=== PATIENT | female | born 1975 | race African-American/Black ===

== ENCOUNTER 2016-12-08 13:32 | Day surgery (SDC) | payer OTHER ==
[2016-12-08 13:57] VITALS: BP 145/90; PULSE 67; RESP 20; TEMP 98.1; O2SAT 100
--- NOTE | 2016-12-08 14:41 | RADRPT ---
EXAM DATE/TIME: 12/08/2016 00:00 [facility] COMPARISON : No previous studies available for comparison. INDICATIONS : CONSULT FOR UFE OBJECTIVE: Temperature: Heart Rate: 67 Blood Pressure: 145/90 Respiratory: 18 Oximetry: 100 PNEUMONIA VACCINE: NO HISTORY OF PRESENT ILLNESS: The patient has a several year history of progressively increasing symptoms associated with known francisco j rine fibroids. The patient reports excessive menstrual bleeding and intermenstrual bleeding associate d with significant dysmenorrhea. The patient has generalized pelvic discomfort in pelvic fullness as well as urinary frequency. She has had routine gynecologic care. In office ultrasound performed by Dr Ying Reid revealed a fibroid uterus without suspicious findings in the endometrial cavity or adnexa. Maria Guadalupe oce was treated for pelvic infection earlier this year and has recovered. PAST MEDICAL HISTORY : 1. UTERINE FIBROIDS PERIRECTAL ABSCESS PAST SURGICAL HISTORY : 1. None. SOCIAL HISTORY : Social alcohol use. Tobacco;none. ALLERGIES: 1. BANANAS 2. MELONS MEDICATIONS: 1. ALEVE 200 mg prn ASSESSMENT: The patient appears to be a good candidate for uterine artery embolization. The procedural details, r isks, benefits and alternatives to treatment were discussed in detail with the patient and her shaka e. PLAN: The patient will call to schedule for UFE at a time in the near future that is convenient for her and her partner. Many thanks to Dr. Reid for inviting us participate in the care of this pleasant young woman. Tigre Paulson MD on December 08, 2016 at 14:33 Board Certified Radiologist. This report was verified electronically.
== END 2016-12-08 14:20 | disposition home or self-care (01) ==
LOC: HROP 13:32 → HRIP 13:33 → HROP 14:20
PROVIDERS: ATTEND Obstetrics & Gynecology Gynecology
DX: D25.9 Leiomyoma of uterus, unspecified (principal)

== ENCOUNTER 2016-12-14 06:17 | Observation (INO) | payer OTHER ==
[~2016-12-14] VITALS: Ht 165.1 cm; Wt 63.0 kg
[2016-12-14] VITALS (13 sets, daily range): BP systolic 122–151; BP diastolic 60–87; PULSE 60–67; RESP 12–20; TEMP 96.3–98.7; O2SAT 95–99
[2016-12-14] MEDS ORDERED: IODIXANOL 320 MG/ML 50 ML VIAL (for RAD SPEC) I-ARTERIAL ONE (06:18)
[2016-12-14] MEDS ORDERED: GELATIN 12 MM/7 MM FOAM I-ARTERIAL ONE (06:18)
[2016-12-14] MEDS ORDERED: MIDAZOLAM HCL 5 MG/5 ML VIAL ONE (06:47)
[2016-12-14] MEDS ORDERED: DIAZEPAM 10 MG TAB PO SCH (07:00)
[2016-12-14] MEDS ORDERED: SODIUM CHLOR 0.9% 1000 ML INJ 1,000 ML IV SCH (07:00)
[2016-12-14] MEDS ORDERED: KETOROLAC TROMETHAMINE 30 MG/ML (IVP) VIAL IV PUSH SCH (07:00)
[2016-12-14] MEDS ORDERED: ceFAZolin 2 GM PREMIX 50 ML IV SCH (07:00)
[2016-12-14] MEDS ORDERED: ONDANSETRON HCL 4 MG/2 ML VIAL IV PUSH SCH (07:00)
[2016-12-14 07:13] LABS: AUTOMATED NEUTROPHIL # 4.7 TH/MM3 (1.8-7.7); BASOPHIL % 0.7 % (0.0-2.0); EOSINOPHIL % 0.3 % (0.0-4.0); HEMATOCRIT 33.3 % (35.0-46.0); HEMO FLAGS DIFF FINAL; LYMPH % 18.5 % (9.0-44.0); LYMPHOCYTE # 1.3 TH/MM3 (1.0-4.8); MEAN CELL VOLUME 84.8 FL (80.0-100.0); MEAN CORPUSCULAR HEMOGLOBIN 27.5 PG (27.0-34.0); MEAN CORPUSCULAR HGB CONC 32.5 % (32.0-36.0); MONO % 12.4 % (0.0-8.0); NEUT % 68.1 % (16.0-70.0); PLATELET COUNT 227 TH/MM3 (150-450); RED BLOOD COUNT 3.93 MIL/MM3 (4.00-5.30); RED CELL DISTRIBUTION WIDTH 17.6 % (11.6-17.2)
[2016-12-14 07:29] LABS: BICARBONATE 25.6 MEQ/L (21.0-32.0); POTASSIUM 3.8 MEQ/L (3.5-5.1)
[2016-12-14 07:31] LABS: INTERNATIONAL NORMALIZED RATIO 0.9 RATIO; PROTHROMBIN TIME - PATIENT 10.3 SEC (9.8-11.6)
--- NOTE | 2016-12-14 08:52 | PD.RAD ---
Post Procedure Progress Note Pre Procedure Diagnosis: (1) Uterine fibroid (2) Menorrhagia Post Procedure Diagnosis: (1) Menorrhagia (2) Uterine fibroid Procedure Date: Dec 14, 2016 Supervising Radiologist: Tigre Paulson Proceduralist/Assist: RT Elizabeth(R) Anesthesia: Local, Conscious Sedation Plan of Activity Patient to Unit: ROPU Patient Condition: Good See PACS Report for procedural detail/treatment Vascular-Arterial Procedure Procedure 1 Procedure Site: Abdominal Procedure(s): Angiogram, Embolization Access Access Site(s): Right Femoral Artery Closure Site(s): Right vascular closure device Treament Area: bilateral uterine artery embolization Tigre Paulson MD Dec 14, 2016 08:52
[2016-12-14] MEDS ORDERED: ONDANSETRON HCL 4 MG/2 ML VIAL IV PUSH PRN (09:00)
[2016-12-14] MEDS ORDERED: HYDROmorphone HCL PCA 6 MG/30 ML IV SCH (09:00)
[2016-12-14] MEDS ORDERED: diphenhydrAMINE HCL 50 MG/ML VIAL IV PUSH PRN (09:00)
[2016-12-14] MEDS ORDERED: diphenhydrAMINE HCL 25 MG CAP PO PRN (09:00)
[2016-12-14] MEDS ORDERED: NALOXONE HCL 0.4 MG/ML AMP IV PUSH PRN ×2 (09:00→10:00)
[2016-12-14] MEDS ORDERED: ACETAMINOPHEN 325 MG TAB PO PRN ×2 (09:00→10:00)
[2016-12-14] MEDS ORDERED: TEMAZEPAM 15 MG CAP PO PRN (10:00)
[2016-12-14] MEDS ORDERED: SODIUM CHLORIDE 0.9% FLUSH 10 ML FLUSH IV FLUSH PRN (10:00)
[2016-12-14] MEDS ORDERED: MAGNESIUM HYDROXIDE SUSP 30 ML CUP PO PRN ×2 (10:00→16:00)
[2016-12-14] MEDS ORDERED: ONDANSETRON HCL 4 MG/2 ML VIAL IVP PRN (10:00)
[2016-12-14] MEDS ORDERED: ACETAMINOPHEN/HYDROcodone 325 MG/5 MG TAB PO PRN ×2 (10:00→16:00)
[2016-12-14] MEDS: KETOROLAC TROMETHAMINE 10 MG TAB PO SCH ×3 (12:00→23:15)
[2016-12-14] MEDS: LEVOFLOXACIN 500 MG TAB PO SCH (12:00)
[2016-12-14] MEDS: KETOROLAC TROMETHAMINE 30 MG/ML (IVP) VIAL IVP SCH ×3 (12:52→23:15)
[2016-12-14] MEDS: LEVOFLOXACIN 500 MG PREMIX INJ 100 ML IV SCH (12:52)
[2016-12-14] MEDS ORDERED: PCA - TOTAL MG DILAUDID DELIVERED PER SHIFT OTHER SCH (14:00)
--- NOTE | 2016-12-14 14:36 | EKG ---
Date Performed: 12/14/2016 Time Performed: 10:19:01 PTAGE: 41 years EKG: Sinus rhythm POSSIBLE RIGHT VENTRICULAR CONDUCTION DELAY BORDERLINE ECG NO PREVIOUS TRACING DOCTOR: Lopez Rivas Interpretating Date/Time 12/14/2016 14:35:42
--- NOTE | 2016-12-14 14:46 | HHI.HP ---
HPI Service [facility] Hospitalists Primary Care Physician Dr. Hewitt Admission Diagnosis pain Chief Complaint: pain S/P Uterine fibroid emboloization Travel History International Travel<30 Days: No Contact w/Intl Traveler <30 Da: No Traveled to Known Affected Are: No History of Present Illness This is a pleasant 41 year old female patient with a past medical history which includes: Perirectal abscess, acute constipation treated in ER Monday uterine fibroid. Patient is S/P Uterine artery embolization 12/14/16 with interventional radiology. We have been consulted for observation admission. Patient currently resting in bed with fiance at bedside. Patient reports she has constant 8/10 right sided abdominal pain which is throbbing in nature with radiation to the back. Patient reports this is the same pain that she has been having since Monday when she was seen at [facility] for constipation. Patient was discharged home and took magnesium citrate Monday AM , since that time patient has small amount of liquid stool on Monday. Patient does not recall passing flatus and also has nausea. Review of Systems Constitutional: DENIES: Fatigue, Fever, Chills Respiratory: DENIES: Cough, Sputum production, Shortness of breath Cardiovascular: DENIES: Chest pain, Palpitations, Dyspnea on Exertion Gastrointestinal: COMPLAINS OF: Abdominal pain, Constipation, Nausea, Vomiting Genitourinary: COMPLAINS OF: Abnormal vaginal bleeding Neurologic: DENIES: Abnormal gait, Headache, Localized weakness, Speech Problems Psychiatric: DENIES: Anxiety, Confusion, Depression Past Family Social History Past Medical History Perirectal abscess, acute constipation treated in ER Monday12/10/16 uterine fibroid Past Surgical History S/P Uterine artery embolization 12/14/16 with interventional radiology Perirectal s/p I&D 2001 Reported Medications none Allergies: Coded Allergies: No Known Allergies (Unverified , 12/14/16) Active Ordered Medications Current Medications Medications (Trade) Dose Ordered Sig/Liya Route Start Time Stop Time Status Last Admin Sodium Chloride 1,000 ml @ 100 mls/hr Q10H IV 12/14/16 07:00 (Valium) 10 mg WATER QUALITY TESTER PO 12/14/16 07:00 12/17/16 06:59 (Toradol Inj) 30 mg WATER QUALITY TESTER IV PUSH 12/14/16 07:00 12/17/16 06:59 Cefazolin Sodium/ Dextrose 50 ml @ 100 mls/hr WATER QUALITY TESTER IV 12/14/16 07:00 12/17/16 06:59 (Zofran Inj) 4 mg WATER QUALITY TESTER IV PUSH 12/14/16 07:00 12/17/16 06:59 (Toradol Inj) 30 mg Q6HR IVP 12/14/16 12:00 12/19/16 11:59 12/14/16 12:52 (Toradol) 10 mg Q6HR PO 12/14/16 12:00 12/19/16 11:59 (Levaquin) 500 mg Q24H PO 12/14/16 12:00 Levofloxacin/ Dextrose 100 ml @ 100 mls/hr Q24H IV 12/14/16 12:00 12/14/16 12:52 (Zofran Inj) 4 mg Q6H PRN IV PUSH 12/14/16 09:00 (Narcan Inj) 0.4 mg UNSCH PRN IV PUSH 12/14/16 09:00 (Benadryl Inj) 25 mg Q6H PRN IV PUSH 12/14/16 09:00 (Benadryl) 25 mg Q6H PRN PO 12/14/16 09:00 (Dilaudid [employer] Inj) 6 mg UNSCH IV 12/14/16 09:00 12/14/16 09:46 [employer] Dosage Infused (Pha) 1 Q8HR OTHER 12/14/16 14:00 12/14/16 14:00 (NS Flush) 2 ml UNSCH PRN IV FLUSH 12/14/16 10:00 (NS Flush) 2 ml BID IV FLUSH 12/14/16 21:00 (Tylenol) 650 mg Q4H PRN PO 12/14/16 10:00 (Zofran Inj) 4 mg Q6H PRN IVP 12/14/16 10:00 (Restoril) 15 mg HS PRN PO 12/14/16 10:00 (Milk Of Magnesia Liq) 30 ml Q12H PRN PO 12/14/16 10:00 (Creede 5-325 Mg) 1 tab Q4H PRN PO 12/14/16 10:00 Family History Father at 53 of cerebral hemorrhage Maternal grandmother alive 100 year old hx of colon Ca Social History Lives with maternal grandmother is her caregiver occasional ETOH use denies tobacco use denies illicit drug use Physical Exam Vital Signs Vital Signs Date Time Temp Pulse Resp B/P (MAP) Pulse Ox O2 Delivery O2 Flow Rate FiO2 12/14/16 14:00 16 12/14/16 11:30 60 12 125/70 (88) 96 12/14/16 11:00 60 12 123/65 (84) 96 12/14/16 10:30 66 12 126/71 (89) 96 12/14/16 10:00 65 12 123/63 (83) 96 12/14/16 09:46 18 12/14/16 09:45 63 12 122/72 (89) 96 12/14/16 09:30 60 12 123/60 (81) 96 12/14/16 09:15 66 16 143/78 (99) 96 12/14/16 09:00 67 16 151/85 (107) 96 12/14/16 08:50 97.6 67 16 132/78 (96) 96 12/14/16 06:51 99 Room Air 12/14/16 06:48 98.7 65 20 151/87 (108) 99 Physical Exam GENERAL: This is a well-nourished, well-developed patient SKIN: No rashes, ecchymoses or lesions. Cool and dry. HEAD: Atraumatic. Normocephalic. No temporal or scalp tenderness. EYES: Extraocular motions intact. No scleral icterus. No injection or drainage. CARDIOVASCULAR: Regular rate and rhythm without murmurs, gallops, or rubs. RESPIRATORY: Clear to auscultation. Breath sounds equal bilaterally. No wheezes , rales, or rhonchi. GASTROINTESTINAL: Abdomen soft, mildly distended. hypoactive bowel sounds MUSCULOSKELETAL: Extremities without clubbing, cyanosis, or edema. No joint tenderness, effusion, or edema noted. No calf tenderness. Negative Homans sign bilaterally. NEUROLOGICAL: Awake and alert. No focal deficits noted. Motor and sensory grossly within normal limits. Five out of 5 muscle strength in all muscle groups. Normal speech. Laboratory Laboratory Tests Test 12/14/16 06:00 White Blood Count 7.0 Red Blood Count 3.93 Hemoglobin 10.8 Hematocrit 33.3 Mean Corpuscular Volume 84.8 Mean Corpuscular Hemoglobin 27.5 Mean Corpuscular Hemoglobin Concent 32.5 Red Cell Distribution Width 17.6 Platelet Count 227 Mean Platelet Volume 9.8 Neutrophils (%) (Auto) 68.1 Lymphocytes (%) (Auto) 18.5 Monocytes (%) (Auto) 12.4 Eosinophils (%) (Auto) 0.3 Basophils (%) (Auto) 0.7 Neutrophils # (Auto) 4.7 Lymphocytes # (Auto) 1.3 Monocytes # (Auto) 0.9 Eosinophils # (Auto) 0.0 Basophils # (Auto) 0.0 CBC Comment DIFF FINAL Differential Comment Prothrombin Time 10.3 Prothromb Time International Ratio 0.9 Activated Partial Thromboplast Time 27.0 Blood Urea Nitrogen 16 Creatinine 0.75 Random Glucose 110 Calcium Level 8.7 Sodium Level 138 Potassium Level 3.8 Chloride Level 107 Carbon Dioxide Level 25.6 Anion Gap 5 Estimat Glomerular Filtration Rate 104 Result Diagram: 12/14/1659912/14/16 06 Caprini VTE Risk Assessment Caprini VTE Risk Assessment: No/Low Risk (score <= 1) Caprini Risk Assessment Model Point Value = 1 Point Value = 2 Point Value = 3 Point Value = 5 Age 41-60 Minor surgery BMI > 25 kg/m2 Swollen legs Varicose veins or History of unexplained or recurrent spontaneous Oral contraceptives or hormone replacement Sepsis (< 1 month) Serious lung disease, including pneumonia (< 1 month) Abnormal pulmonary function Acute myocardial infarction Congestive heart failure (< 1 month) History of inflammatory bowel disease Medical patient at bed rest Age 61-74 Arthroscopic surgery Major open surgery (> 45 min) Laparoscopic surgery (> 45 min) Malignancy Confined to bed (> 72 hours) Immobilizing plaster cast Central venous access Age >= 75 History of VTE Family history of VTE Factor V Leiden Prothrombin [id number] Lupus anticoagulant Anticardiolipin antibodies Elevated serum homocysteine Heparin-induced thrombocytopenia Other congenital or acquired thrombophilia Stroke (< 1 month) Elective arthroplasty Hip, pelvis, or leg fracture Acute spinal cord injury (< 1 month) Prophylaxis Regimen Total Risk Factor Score Risk Level Prophylaxis Regimen 0-1 Low Early ambulation 2 Moderate Order ONE of the following: *Sequential Compression Device (SCD) *Heparin 5000 units SQ BID 3-4 Higher Order ONE of the following medications: *Heparin 5000 units SQ TID *Enoxaparin/Lovenox 40 mg SQ daily (WT < 150 kg, CrCl > 30 mL/min) *Enoxaparin/Lovenox 30 mg SQ daily (WT < 150 kg, CrCl > 10-29 mL/min) *Enoxaparin/Lovenox 30 mg SQ BID (WT < 150 kg, CrCl > 30 mL/min) AND/OR *Sequential Compression Device (SCD) 5 or more Highest Order ONE of the following medications: *Heparin 5000 units SQ TID (Preferred with Epidurals) *Enoxaparin/Lovenox 40 mg SQ daily (WT < 150 kg, CrCl > 30 mL/min) *Enoxaparin/Lovenox 30 mg SQ daily (WT < 150 kg, CrCl > 10-29 mL/min) *Enoxaparin/Lovenox 30 mg SQ BID (WT < 150 kg, CrCl > 30 mL/min) AND *Sequential Compression Device (SCD) Assessment and Plan Problem List: (1) Uterine fibroid ICD Codes: D25.9 - Leiomyoma of uterus, unspecified Plan: Abdominal pain S/P bilateral uterine artery embolization 12/14/[address] Paulson Currently in Dilaudid [employer] per Dr. Khurram Ring as needed for N/V Constipation- patient was recently seen in [facility] for Constipation 12/09/16 DC told to take Magnesium Citrate Ileus continued pain, N/V, absent flatus, hypoactive bowel sounds Bowel regiment, Colace BID, Dulcolax sup now Relistor x 1 KUB ordered and pending DVT prophylaxis with SCDs Assessment and Plan Patient examined. Assessment and plan formulated with Maria Isabel Stout PA-C. I agree with the above. Maria Isabel Stout Dec 14, 2016 14:46 Josemanuel Molina DO Dec 18, 2016 00:17
[2016-12-14] MEDS ORDERED: HYDROmorphone HCL PF 1 MG/ML VIAL IV PUSH PRN (16:00)
[2016-12-14] MEDS: DOCUSATE SODIUM 100 MG CAP PO SCH ×2 (16:23→20:57)
[2016-12-14] MEDS: 1/2 NS + KCL 20 MEQ INJ 1,000 ML IV SCH (16:24)
[2016-12-14] MEDS ORDERED: BISACODYL 10 MG SUPP RECTAL ONE (16:30)
[2016-12-14] MEDS ORDERED: METHYLNALTREXONE BROMIDE 12 MG/0.6 ML VIAL SQ ONE (17:00)
[2016-12-14 17:20] LABS: BETA HCG QUANT LESS THAN 1 MIU/ML (0-5)
--- NOTE | 2016-12-14 17:25 | RADRPT ---
EXAM DATE/TIME: 12/14/2016 15:41 [facility] COMPARISON: No previous studies available for comparison. INDICATIONS : Abdominal distention for several days. Vomiting today. MEDICAL HISTORY : None. SURGICAL HISTORY : None. ENCOUNTER: Subsequent ACUITY: 2 days PAIN SCORE: 4/10 LOCATION: Abdomen, upper quadrant. FINDINGS: Supine view of the abdomen was performed. The abdominal bowel gas pattern is normal. No abnormal ma sses, calcifications, or organomegaly is seen. Prominent soft tissue is present in the pelvis though t to be of fibroid uterus. The osseous structures are unremarkable. CONCLUSION: Normal soft tissue midpelvis otherwise negative. Rich Ny MD FACR on December 14, 2016 at 17:18 Board Certified Radiologist. This report was verified electronically.
[2016-12-14] MEDS: SODIUM CHLORIDE 0.9% FLUSH 10 ML FLUSH IV FLUSH SCH (20:57)
--- NOTE | 2016-12-14 23:00 | RADRPT ---
EXAM DATE/TIME: 12/14/2016 07:37 [facility] COMPARISON: No previous studies available for comparison. INDICATIONS : Patient with a history of uterine fibroid bleeding. MEDICAL HISTORY : Uterine bleeding UTI SURGICAL HISTORY : Char-rectal abscess ENCOUNTER: Initial ACUITY: > 1 year PAIN SCORE: 5/10 LOCATION: Pelvis FLUORO TIME: 15.4 minutes IMAGE SERIES: 12 ACCESS SITE: Right Femoral artery SEDATION TIME: 60 minutes CONTRAST: 1.) 130 cc Visipaque (iodixanol) MEDICATION(S): 1.) 4 mg midazolam (Versed) IV 2.) 200 mcg fentanyl (Sublimaze) IV Prophylactic antibiotics were administered with appropriate pre-procedure timing. DEVICE(S): 1.) Bilateral uterine artery 355-500 PVA 2.) Bilateral uterine artery Gelfoam 3.) Right common femoral artery Starclose PROCEDURE: 1. Continuous pulse oximetry and EKG monitoring for a total of 60 minutes 2. Intravenous conscious sedation 3. Ultrasound guidance for right femoral arterial access 4. Subselective catheterization, left uterine artery 5. Left uterine arteriography 6. Subselective catheterization, right uterine artery 7. Right uterine arteriography 8. Bilateral uterine artery embolization 9. Followup arteriography postembolization, bilateral internal iliac arteries 10. Right femoral arteriography pre-arteriotomy closure 11. Right common femoral arteriotomy closure with Starclose device 12. Abdominal aortography TECHNIQUE: The risks, benefits and alternatives to uterine artery embolization were explained to the patient in detail, and lay terms and verbal and written informed consent was obtained. The patien t was placed supine on the angiography table. The right groin was prepped in sterile fashion. Full st erile technique was used, including cap, mask, sterile gloves and gown and a large sterile sheet. Orozco d hygiene and 2% chlorhexidine and/or betadine/alcohol prep was utilized per protocol for cutaneous a ntisepsis. The skin and subcutaneous tissues were infiltrated with lidocaine solution. Under direct u ltrasound guidance, micropuncture access was accomplished and the right common femoral artery and a 4 Malay vascular sheath was placed. Sterile U/S probe cover and sterile U/S gel was utilized. The ult rasound images depicting access guidance were saved and stored to PACS for permanent record. A 4 Malay Omni flush catheter was inserted and positioned in the low abdominal aorta. Digital subtra ction pelvic arteriography was performed. The Omni Flush catheter was used to select over the aortic bifurcation and was manipulated down into the contralateral left internal iliac. With the aid of road mapping guidance, an angled Glidewire was manipulated into the left uterine artery. A 4 Malay Cobra catheter followed without difficulty and was positioned in the inferior horizontal portion of the ut erine artery. Subselective left uterine arteriography was performed. Embolization was accomplished us ing 350-500 PVA particles to complete occlusion of the vessel. Followup arteriography performed in the internal iliac revealed complete occlusion of the uterine artery with good preservation of flow i n the other anterior division branches. Attention was then turned to catheterization of the ipsilateral right internal iliac. Again with the road mapping guidance, the uterine artery was subselectively catheterized and DSA performed. Right ut erine artery embolization was accomplished in a similar fashion and a followup arteriography revealed an excellent result with total occlusion of the vessel and good preservation of flow in other iliac vessels. In order to exclude any additional aberrant blood supply to the very large uterus in this case, the O mni Flush catheter was replaced into the upper abdominal aorta and completion abdominal aortography a nd pelvic arteriography was performed. Right femoral sheath arteriography was then performed to evaluate the common femoral artery for closu re. The right groin sheath was removed and the arteriotomy was closed with Starclose device. The robi ent tolerated the procedure well and was taken to recovery in stable condition. FINDINGS: Classical pelvic arterial anatomy is noted. The iliacs are widely patent bilaterally. Hypogastrics ar e widely patent bilaterally. The uterine arteries are enlarged without clear feeders to the ovaries. No aberrant blood supply from gonadal or other aortic or iliac branch vessels was identified on compl etion aortography CONCLUSION: Uncomplicated bilateral uterine artery embolization for symptomatic fibroids as described in detail above. Tigre Paulson MD on December 14, 2016 at 22:53 Board Certified Radiologist. This report was verified electronically.
[2016-12-14] MEDS ORDERED: MAGNESIUM CITRATE SOLN 300 ML BTL PO ONE (23:45)
[2016-12-15] VITALS: BP 130/63; PULSE 68; RESP 16; TEMP 97.9; O2SAT 99
[2016-12-15] MEDS: 1/2 NS + KCL 20 MEQ INJ 1,000 ML IV SCH (04:28)
[2016-12-15] MEDS: KETOROLAC TROMETHAMINE 30 MG/ML (IVP) VIAL IVP SCH ×2 (04:33→12:00)
[2016-12-15] MEDS: KETOROLAC TROMETHAMINE 10 MG TAB PO SCH ×2 (04:34→12:16)
--- NOTE | 2016-12-15 06:33 | PD.RAD ---
Radiology Note Pt. resting comfortably. no nausea. Mild right abd discomfort abd soft, NT to palp right groin OK with 2+ pulse no BM Imp: doing well s/p UFE addressing constipation pt can D/C when medically appropriate will need a week of Levaquin PO and analgesic Rx Tigre Paulson MD Dec 15, 2016 06:33
[2016-12-15 07:21] LABS: AUTOMATED NEUTROPHIL # 5.3 TH/MM3 (1.8-7.7); BASOPHIL % 0.2 % (0.0-2.0); HEMATOCRIT 31.8 % (35.0-46.0); HEMO FLAGS DIFF FINAL; LYMPH % 17.5 % (9.0-44.0); LYMPHOCYTE # 1.2 TH/MM3 (1.0-4.8); MEAN CELL VOLUME 84.4 FL (80.0-100.0); MEAN CORPUSCULAR HEMOGLOBIN 27.8 PG (27.0-34.0); MEAN CORPUSCULAR HGB CONC 32.9 % (32.0-36.0); NEUT % 74.3 % (16.0-70.0); PLATELET COUNT 171 TH/MM3 (150-450); RED BLOOD COUNT 3.77 MIL/MM3 (4.00-5.30); RED CELL DISTRIBUTION WIDTH 17.8 % (11.6-17.2); WHITE BLOOD COUNT 7.1 TH/MM3 (4.0-11.0)
[2016-12-15 07:50] LABS: BICARBONATE 24.6 MEQ/L (21.0-32.0); MAGNESIUM 2.5 MG/DL (1.5-2.5)
[2016-12-15 08:00] VITALS: BP 105/53; PULSE 66; RESP 17; TEMP 98.3; O2SAT 97
[2016-12-15] MEDS: DOCUSATE SODIUM 100 MG CAP PO SCH (09:00)
[2016-12-15] MEDS: SODIUM CHLORIDE 0.9% FLUSH 10 ML FLUSH IV FLUSH SCH (09:00)
--- NOTE | 2016-12-15 10:37 | RADRPT ---
EXAM DATE/TIME: 12/15/2016 08:56 [facility] COMPARISON: TRANSCATH IV OCCLUSSION, UTERINE FIBROIDS, December 14, 2016, 7:37. ABDOMEN KUB ONLY, December 14 7, 15:41. INDICATIONS : Ileus MEDICAL HISTORY : Uterine bleeding SURGICAL HISTORY : Char-rectal abscess ENCOUNTER: Subsequent ACUITY: 3 days PAIN SCORE: 8/10 LOCATION: Abdomen FINDINGS: Supine view of the abdomen was performed. The abdominal bowel gas pattern is normal. There is no laila dence of pathologic distention. Mass effect is evident in the central pelvis from the patient's known fibroids. The osseous structures are unremarkable. CONCLUSION: No evidence of significant ileus. Negrito Mo MD on December 15, 2016 at 10:32 Board Certified Radiologist. This report was verified electronically.
[2016-12-15] MEDS ORDERED: LEVA500T20 PO (11:49)
[2016-12-15] MEDS ORDERED: ZOFR4TAB PO (11:49)
[2016-12-15] MEDS ORDERED: KETO10 PO (11:49)
--- NOTE | 2016-12-15 11:51 | HHI.DCPOC ---
Discharge Care Plan Diagnosis: (1) Constipation (2) Uterine fibroid Goals to Promote Your Health * To prevent worsening of your condition and complications * To maintain your health at the optimal level Directions to Meet Your Goals Take your medications as prescribed Follow your dietary instruction Follow activity as directed Keep your appointments as scheduled Take your immunizations and boosters as scheduled If your symptoms worsen call your PCP, if no PCP go to Urgent Care Center or Emergency Room Smoking is Dangerous to Your Health. Avoid second hand smoke Call the 24-hour hour crisis hotline for domestic abuse at Maria Isabel Stout Dec 15, 2016 11:51 Josemanuel Molina DO Dec 18, 2016 00:19
--- NOTE | 2016-12-15 11:55 | HHI.PR ---
Subjective Remarks Patient feeling much better today had BM this AM, passing flatus no longer having N/V Objective Vitals Vital Signs Date Time Temp Pulse Resp B/P (MAP) Pulse Ox O2 Delivery O2 Flow Rate FiO2 12/15/16 08:00 98.3 66 17 105/53 (70) 97 12/15/16 00:00 97.9 68 16 130/63 (85) 99 12/14/16 20:00 96.3 60 16 130/69 (89) 98 12/14/16 16:00 96.8 67 16 129/63 (85) 95 12/14/16 15:17 96.6 65 16 127/60 (82) 98 12/14/16 14:00 16 Result Diagram: 12/15/16 0632 12/15/16 0622 Other Results Laboratory Tests Test 12/14/16 06:00 12/15/16 06:22 12/15/16 06:32 White Blood Count 7.0 TH/MM3 7.1 TH/MM3 Red Blood Count 3.93 MIL/MM3 3.77 MIL/MM3 Hemoglobin 10.8 GM/DL 10.5 GM/DL Hematocrit 33.3 % 31.8 % Mean Corpuscular Volume 84.8 FL 84.4 FL Mean Corpuscular Hemoglobin 27.5 PG 27.8 PG Mean Corpuscular Hemoglobin Concent 32.5 % 32.9 % Red Cell Distribution Width 17.6 % 17.8 % Platelet Count 227 TH/MM3 171 TH/MM3 Mean Platelet Volume 9.8 FL 10.0 FL Neutrophils (%) (Auto) 68.1 % 74.3 % Lymphocytes (%) (Auto) 18.5 % 17.5 % Monocytes (%) (Auto) 12.4 % 8.0 % Eosinophils (%) (Auto) 0.3 % 0.0 % Basophils (%) (Auto) 0.7 % 0.2 % Neutrophils # (Auto) 4.7 TH/MM3 5.3 TH/MM3 Lymphocytes # (Auto) 1.3 TH/MM3 1.2 TH/MM3 Monocytes # (Auto) 0.9 TH/MM3 0.6 TH/MM3 Eosinophils # (Auto) 0.0 TH/MM3 0.0 TH/MM3 Basophils # (Auto) 0.0 TH/MM3 0.0 TH/MM3 CBC Comment DIFF FINAL DIFF FINAL Differential Comment Prothrombin Time 10.3 SEC Prothromb Time International Ratio 0.9 RATIO Activated Partial Thromboplast Time 27.0 SEC Blood Urea Nitrogen 16 MG/DL 5 MG/DL Creatinine 0.75 MG/DL 0.55 MG/DL Random Glucose 110 MG/DL 113 MG/DL Calcium Level 8.7 MG/DL 8.5 MG/DL Sodium Level 138 MEQ/L 137 MEQ/L Potassium Level 3.8 MEQ/L 4.0 MEQ/L Chloride Level 107 MEQ/L 106 MEQ/L Carbon Dioxide Level 25.6 MEQ/L 24.6 MEQ/L Anion Gap 5 MEQ/L 6 MEQ/L Estimat Glomerular Filtration Rate 104 ML/MIN 148 ML/MIN Human Chorionic Gonadotropin, Quant LESS THAN 1 MIU/ML Magnesium Level 2.5 MG/DL Imaging Last Impressions Abdomen X-Ray 12/15/16 0800 Signed Impressions: Service Date/Time: December 08:56 - CONCLUSION: No evidence of significant ileus. Negrito Mo MD Embolization, Transcatheter 12/14/16 0000 Signed Impressions: Service Date/Time: Wednesday, December 14, 2016 07:37 - CONCLUSION: Uncomplicated bilateral uterine artery embolization for symptomatic fibroids as described in detail above. Tigre Paulson MD Objective Remarks GENERAL: This is a well-nourished, well-developed patient CARDIOVASCULAR: Regular rate and rhythm RESPIRATORY: Clear to auscultation. GASTROINTESTINAL: Abdomen soft, nondistended.normoactive bowel sounds MUSCULOSKELETAL: Extremities without clubbing, cyanosis, or edema. No joint tenderness, effusion, or edema noted. No calf tenderness. Negative Homans sign bilaterally. NEUROLOGICAL: Awake and alert. No focal deficits noted. Motor and sensory grossly within normal limits. Five out of 5 muscle strength in all muscle groups. Normal speech. Procedures bilateral uterine artery embolization 12/14/[address] Paulson A/P Problem List: (1) Uterine fibroid ICD Codes: D25.9 - Leiomyoma of uterus, unspecified Plan: Abdominal pain S/P bilateral uterine artery embolization 12/14/[address] Paulson Initially on Dilaudid SLAGGER per Dr. Paulson- later DC'd Zofran as needed for N/V Pain improved tolerable on y mouth medication Constipation- patient was recently seen in [facility] for Constipation 12/09/16 DC told to take Magnesium Citrate Ileus continued pain, N/V, absent flatus, hypoactive bowel sounds Bowel regiment, Colace BID, Dulcolax sup now Relistor x 1 KUB reviewed and improved patient did have BM today is passing flatus DVT prophylaxis with SCDs Patient cleared for DC by patient DC home in stable condition with follow up instructions on a regular diet as tolerated Levaquin PO x 1 week Toradol PO as needed for pain Zofran as needed for nausea Colace BID to prevent constipations Assessment and Plan Patient examined. Assessment and plan formulated with Maria Isabel Stout PA-C. I agree with the above. Maria Isabel Stout Dec 15, 2016 11:55 Josemanuel Molina DO Dec 18, 2016 00:16
[2016-12-15 12:00] VITALS: BP 118/72; PULSE 64; RESP 18; TEMP 98.2; O2SAT 100
[2016-12-15] MEDS: LEVOFLOXACIN 500 MG PREMIX INJ 100 ML IV SCH (12:00)
[2016-12-15] MEDS: LEVOFLOXACIN 500 MG TAB PO SCH (12:16)
[2016-12-15] MEDS ORDERED: COLA100C PO (12:20)
[2016-12-15] MEDS ORDERED: LEVA250T14 PO (12:34)
== END 2016-12-15 15:46 | disposition home or self-care (01) ==
LOC: HROP 06:17 → HRIP 06:17 → HROP 08:53 → N07A 08:54
PROVIDERS: ADMIT Obstetrics & Gynecology Gynecology; ATTEND Obstetrics & Gynecology Gynecology
DX: D25.9 Leiomyoma of uterus, unspecified (principal); N92.0 Excessive and frequent menstruation with regular cycle; R94.31 Abnormal electrocardiogram [ECG] [EKG]; K59.00 Constipation, unspecified
CPT/HCPCS: 36247; 37243; 74000; 75774; 76937; 80048; 83735; 84702; 85025; 85610; 85730; 93005; 99152; 99153; C1760; C1769; C1887; C1894; G0378; J1170; J1885; J1956; J2212; J2250; J2405; J3010; Q9967

== ENCOUNTER 2016-12-22 14:11 | Day surgery (SDC) | payer OTHER ==
[~2016-12-22 14:11] MED LIST: COLA100C PO; KETO10 PO; LEVA250T14 PO; ZOFR4TAB PO
[2016-12-22 14:29] VITALS: BP 126/84; PULSE 61; RESP 20; TEMP 98.5; O2SAT 99
--- NOTE | 2016-12-22 16:45 | RADRPT ---
EXAM DATE/TIME: 12/22/2016 14:43 [facility] COMPARISON : No previous studies available for comparison. INDICATIONS : F/U UFE OBJECTIVE: Temperature: 98.5 Heart Rate: 61 Blood Pressure: 126/84 Respiratory: 20 Oximetry: 99 HISTORY OF PRESENT ILLNESS: Patient is one week status post uterine artery embolization. Patient complains of mild cramping abdom inal pain. Denies any passage of tissue. Mild spotting. No fever. Taken antibiotics without difficult y. ASSESSMENT: Patient doing well status post uterine artery embolization. PLAN: Followup as needed. TIME SPENT: 15 minutes Charlie Waters Jr., MD on December 22, 2016 at 16:39 Board Certified Radiologist. This report was verified electronically.
== END 2016-12-22 15:04 | disposition home or self-care (01) ==
LOC: HROP 14:11 → HRIP 14:14 → HROP 15:04
PROVIDERS: ATTEND Radiology Body Imaging
DX: Z09 Encounter for follow-up examination after completed treatment for conditions other than malignant neoplasm (principal); R10.9 Unspecified abdominal pain